=== PATIENT | female | born 1960 | race Caucasian/White ===

== ENCOUNTER 2016-12-27 11:16 | Emergency (ER) | payer OTHER ==
[~2016-12-27] VITALS: Ht 154.9 cm; Wt 90.5 kg
[2016-12-27] MEDS ORDERED: SOY155CA PO (11:32)
[2016-12-27] MEDS ORDERED: CITA20TA9 PO (11:32)
[2016-12-27] MEDS ORDERED: LISI-662 PO (11:32)
[2016-12-27] MEDS ORDERED: IBUPROFEN 800 MG TABLET PO ONE (12:15)
[2016-12-27 12:49] VITALS: BP 151/99
== END 2016-12-27 13:12 | disposition home or self-care (01) ==
LOC: EMS 11:20
DX: S93.402A Sprain of unspecified ligament of left ankle, initial encounter (principal); S76.902A Unspecified injury of unspecified muscles, fascia and tendons at thigh level, left thigh, initial encounter; I10 Essential (primary) hypertension; W01.0XXA Fall on same level from slipping, tripping and stumbling without subsequent striking against object, initial encounter; Y93.89 Activity, other specified; Y92.89 Other specified places as the place of occurrence of the external cause; Y99.8 Other external cause status
CPT/HCPCS: 29515; 99283